=== PATIENT | female | born 1970 | race Caucasian/White ===

== ENCOUNTER → 2018-01-26 07:58 | Outpatient (CLI) | payer BC, SELFPAY ==
--- NOTE | 2018-01-26 08:02 | CT_ITS ---
CT abdomen pelvis wo con CLINICAL INDICATION: ITS.REASON: RT FLANK PAIN ORDERING PHYSICIAN: Mary Laughlin MD PATIENT AGE: 47 years COMPARISON: 11/13/2014 TECHNIQUE: Axial images obtained with sagittal and coronal reformats. All CT scans at the facility use one or more dose reduction, viz: automated exposure control, ma/kV adjustment per patient size (including targeted exams where dose is matched to indication, i.e. head), or iterative reconstruction technique. PROCEDURE: Oral Contrast: None IV Contrast: None . FINDINGS: Lower thorax: No acute finding in the lung bases. Calcified granuloma is present in the left lower lobe. There is a stable isodensity in the left hepatic lobe at 9 mm. Liver is otherwise unremarkable. No calcified gallstones evident. The spleen, adrenal glands, and pancreas have an unremarkable unenhanced CT appearance. No renal or ureteral calculi. No hydronephrosis. Unremarkable appendix. No evidence of intestinal obstruction, free air, or diverticulitis. No pelvic mass or abnormal fluid collection or focal inflammatory change. There may be some nabothian cysts at the cervix. No calculi within the urinary bladder. No acute bony anomaly. IMPRESSION: No acute abdominal or pelvic findings. No evidence of renal or ureteral calculi. Incidental nonacute findings as described above
== END ==
PROVIDERS: PCP Family Medicine; Visit Provider Family Medicine
DX: R10.9 Unspecified abdominal pain (principal)
CPT/HCPCS: 74176

== ENCOUNTER → 2018-10-13 14:04 | Outpatient (CLI) | payer BC, SELFPAY ==
--- NOTE | 2018-10-13 14:12 | XR_ITS ---
EXAM: XR thoracic spine 3V HISTORY: ITS.REASON: BACK PAIN Comparison: None FINDINGS: Normal alignment. No fracture or dislocation. No lytic or blastic change. There are mild degenerative changes in the midthoracic spine with minimal osteophyte formation anteriorly at the T6-T7 level. IMPRESSION: Minimal degenerative change, no acute finding
--- NOTE | 2018-10-13 14:12 | XR_ITS ---
EXAM: XR lumbar spine min 4V HISTORY: ITS.REASON: BACK PAIN ORDERING PHYSICIAN: STEVE Landry PATIENT AGE: 47 years COMPARISON: None FINDINGS: Normal alignment. There is minimal lumbar curvature convex left. There is mild degenerative disc disease at L4-L5 and L5-S1. Small area of sclerosis overlies the medial aspect of the left ilium and may be due to small bone island. IMPRESSION: Mild degenerative disc disease L4-L5 and L5-S1
== END ==
PROVIDERS: PCP Family Medicine; Visit Provider Physician Assistant
DX: M54.5 Low back pain (principal); M54.6 Pain in thoracic spine
CPT/HCPCS: 72072; 72110

== ENCOUNTER → 2018-10-25 13:14 | Outpatient (CLI) | payer BC, SELFPAY ==
--- NOTE | 2018-10-25 13:17 | MR_ITS ---
PROCEDURE: MR LUMBAR SPINE WO CON CLINICAL INDICATION: ACUTE MIDLINE LOW BACK PAIN WITHOUT SCIATICA Acute midline low back pain, right-sided low back pain COMPARISON: from 10/13/2018 from 10/13/2018 TECHNIQUE: Standard multiplanar multiecho sequences are performed without contrast. 3-D MIP and myelographic images are also rendered and reviewed FINDINGS: There is normal alignment. The spinal cord ends at the T12-L1 level. Mild facet hypertrophic change noted. L1-L2: Unremarkable. L2-L3: Minimal disc desiccation otherwise unremarkable. L3-L4: Minimal disc desiccation otherwise unremarkable L4-5: Unremarkable. L5-S1: Unremarkable. No disc herniation, canal stenosis, or other significant anomaly evident. IMPRESSION: No acute finding. No disc herniation or canal stenosis. Minimal disc desiccation with mild facet hypertrophic change Dictated by: Rivas Ruvalcaba MD 10/27/2018 08:06 Signed by: <Electronically signed by Rivas Ruvalcaba MD in [place]> 10/27/2018 08:06
--- NOTE | 2018-10-25 13:17 | MR_ITS ---
PROCEDURE: MR THORACIC SPINE WO CON CLINICAL INDICATION: ACUTE MIDLINE LOW BACK PAIN WITHOUT SCIATICA Acute mid back pain COMPARISON: from 10/13/2018 TECHNIQUE: Routine multiplanar multi echo sequences are performed without gadolinium enhancement. FINDINGS: Normal alignment. No fracture or dislocation. No destructive process.. There is mild degenerate disc disease with disc desiccation and slight decrease in the disc space at T5-T6 T6-T7 and T7-T8. There is small broad-based right paracentral disc protrusion at T6-T7 without impingement. There is mild contour deformity of the anterior aspect of the cord on the right at this level but no obvious impingement by the overlying disc. Minimal bulging disc versus small broad-based left paracentral disc protrusion at T10-T11 without impingement. Lipoma involves the T9 vertebral body at 1 cm. Incidental note is made of trace bilateral pleural effusions. The IMPRESSION: Mild degenerative changes. Small right broad-based paracentral disc protrusion at T6-T7 and small broad-based left paracentral disc protrusion at T10-T11. No impingement upon the cord. There is some minimal contour deformity involving the anterior right aspect of the cord at T6-T7. Small bilateral pleural effusions Dictated by: Rivas Ruvalcaba MD 10/27/2018 08:13 Signed by: <Electronically signed by Rivas Ruvalcaba MD in [place]> 10/27/2018 08:13
== END ==
PROVIDERS: PCP Family Medicine; Visit Provider Physician Assistant
DX: M54.5 Low back pain (principal)
CPT/HCPCS: 72146; 72148; 76376

== ENCOUNTER → 2018-11-03 14:07 | Outpatient (CLI) | payer BC, SELFPAY ==
--- NOTE | 2018-11-03 14:15 | XR_ITS ---
PROCEDURE: XR CHEST 2V CLINICAL HISTORY: PLEURAL EFFUSION Pleural effusion, shortness of air COMPARISON: No exams were available for comparison FINDINGS: The cardiomediastinal silhouette and pulmonary vascularity are within normal limits. The lungs are clear without infiltrates, suspicious nodules, or pleural effusions. Calcified granulomas are present in the left lower lobe and there is calcified node in the left hilum. No acute bony IMPRESSION: Findings. No acute finding Dictated by: Rivas Ruvalcaba MD 11/03/2018 14:46 Signed by: <Electronically signed by Rivas Ruvalcaba MD in [place]> 11/03/2018 14:46
== END ==
PROVIDERS: PCP Family Medicine; Visit Provider Physician Assistant
DX: J90 Pleural effusion, not elsewhere classified (principal)
CPT/HCPCS: 71046

== ENCOUNTER → 2019-03-15 10:46 | Outpatient (CLI) | payer BC, SELFPAY ==
[2019-03-15 11:54] LABS: HCG Qualitative, Serum Negative (Negative)
== END ==
PROVIDERS: Visit Provider Surgery
DX: K82.9 Disease of gallbladder, unspecified (principal)
CPT/HCPCS: 36415; 84703

== ENCOUNTER → 2021-06-23 13:39 | Outpatient (CLI) | payer BC, SELFPAY ==
--- NOTE | 2021-06-23 13:43 | MM_ITS ---
PROCEDURE INFORMATION: Exam: MG Bilateral Screening 3D Mammography Exam date and time: 06/23/2021 1:41 PM Age: 50 years old Clinical indication: Screening examination mammogram. TECHNIQUE: Imaging protocol: Bilateral Screening tomosynthesis and 2D mammography including computer-aided detection (CAD) when performed. COMPARISON: 1. MG DMSB DIG MAMM-SCREEN TERRANCE 06/11/2014 10:43 AM 2. MG DMDXUAVL DIG MAMM-DX UNI ADD VIEWS-LT 01/12/2011 10:15 AM 3. MG DMSB DIGITAL MAMM-SCREEN BILATERAL 12/19/2010 9:23 AM FINDINGS: MAMMOGRAPHY: Breast composition: There are scattered areas of fibroglandular density. Mass: Mass within the slightly lower central left anterior breast measuring 11 mm should be further assessed with spot views in CC/MLO projection. Ultrasound should also be performed. Architectural distortion: No new or suspicious architectural distortion. Calcifications: No new or suspicious calcifications are present Asymmetric density: No new or suspicious asymmetric density is present Skin thickening: None. Axillary adenopathy: None. IMPRESSION: Mass within the slightly lower central left anterior breast measuring 11 mm should be further assessed with spot views in CC/MLO projection. Ultrasound should also be performed. ASSESSMENT: BI-RADS category 0: Incomplete-need additional imaging evaluation
== END ==
PROVIDERS: PCP Physician Assistant; Visit Provider Physician Assistant
DX: Z12.31 Encounter for screening mammogram for malignant neoplasm of breast (principal)
CPT/HCPCS: 77063; 77067

== ENCOUNTER → 2021-07-03 13:28 | Outpatient (CLI) | payer BC, SELFPAY ==
--- NOTE | 2021-07-03 13:34 | US_ITS ---
PROCEDURE INFORMATION: Exam: US Left Breast, Complete MG Left Diagnostic Breast Tomosynthesis Exam date and time: 07/03/2021 1:48 PM Age: 50 years old Clinical indication: Patient recalled on the basis of a screening mammogram for further evaluation; Left breast; Mass TECHNIQUE: Imaging protocol: Complete ultrasound of all four quadrants of the Left breast and the retroareolar regions, including ultrasound of the axilla when performed. Left Diagnostic tomosynthesis and 2D mammography including computer-aided detection (CAD) when performed. Unilateral or bilateral exam. COMPARISON: 1. MG MM DIG SCREENING MAMM BI W/CAD 06/23/2021 1:41 PM 2. MG DMSB DIG MAMM-SCREEN TERRANCE 06/11/2014 10:43 AM FINDINGS: MAMMOGRAPHY: Digital diagnostic spot compression views of the left retroareolar region and 90 degree lateral view of the left breast demonstrates a persistent 1.1 cm ovoid mass without associated architectural distortion ULTRASOUND: Sonographic images of the left breast including the retroareolar region, all 4 quadrants and the axilla do not demonstrate any solid masses. Bilobed 0.9 cm cyst in the 2 o'clock periareolar region most closely corresponds to the mass on mammography. Cursors were placed over normal fibrofatty tissue in lower outer quadrant 4 cm from the nipple. No architectural distortion or acoustical shadowing. No skin thickening or axillary adenopathy. IMPRESSION: Mass on screening mammography corresponds to underlying cystic change sonographically. There is no mammographic evidence of malignancy.Annual bilateral mammographic screening is recommended unless otherwise clinically indicated. ASSESSMENT: BI-RADS Category 2: Benign
== END ==
PROVIDERS: PCP Physician Assistant; Visit Provider Physician Assistant
DX: R92.8 Other abnormal and inconclusive findings on diagnostic imaging of breast (principal)
CPT/HCPCS: 76641; 77061; 77065; G0279

== ENCOUNTER 2023-01-04 13:59 | Emergency (ER) | payer BC, SELFPAY ==
[2023-01-04 14:15] VITALS: BP 137/98; PULSE 90; RESP 18; TEMP 36.9; O2SAT 96; BMI 34.4
--- NOTE | 2023-01-04 14:15 | EXP.UTC ---
Discharge Plan Disposition Patient Disposition: Home, Self-Care Condition: Good Prescriptions Prescriptions: New amoxicillin [amoxicillin] 875 mg tablet 875 mg PO Q12H Qty: 20 0RF benzonatate [benzonatate] 100 mg capsule 100 mg PO TIDP PRN (Reason: Cough) Qty: 30 0RF methylprednisolone 4 mg Tablets,Dose Pack 4 mg PO DIRECTED Qty: 21 0RF Referrals Follow up/Referrals: Deion Nails MD [Primary Care Provider] - See instructions Activity Restrictions/Add. Instructions Additional Instructions/Restrictions: Drink plenty of fluids. Take tylenol or ibuprofen for pain or fever. Take the medications as directed. Follow up with your regular doctor. GO TO THE ER FOR ANY WORSENING SYMPTOMS Clinical Impressions Clinical Impression: Acute bronchitis, Acute viral syndrome Stand Alone Forms Stand Alone Forms: Work/School Release Instructions Patient Instructions: Acute Bronchitis, DI for Acute Bronchitis, DI for Viral Syndrome Discharge ED Provider: Naga Romero [facility] General Stated complaint: low grade fever, cough,congestion,headache Time Seen by Provider: 01/04/23 14:15 History of Present Illness Provider Complaint: She states that for the past 1 week she has had sinus congestion and a cough. Related Data Previous Rx's Medication Instructions Recorded amoxicillin 875 mg tablet 875 mg PO Q12H #20 tabs 01/04/23 benzonatate 100 mg capsule 100 mg PO TIDP PRN Cough #30 caps 01/04/23 methylprednisolone 4 mg tablets in 4 mg PO DIRECTED #21 tabs 01/04/23 a dose pack Allergies Allergy/AdvReac Type Severity Reaction Status Date / Time adhesive tape Allergy Blister Verified 01/04/23 14:40 alcohol Allergy Blister Verified 01/04/23 14:40 [From Mastisol Adhesive] gum mastic Allergy Blister Verified 01/04/23 14:40 [From Mastisol Adhesive] methyl salicylate Allergy Blister Verified 01/04/23 14:40 [From Mastisol Adhesive] storax Allergy Blister Verified 01/04/23 14:40 [From Mastisol Adhesive] [facility] Disclaimer: The information contained in this section may have been updated after the patient was seen, as this information can be updated by other users. Social History Smoking Status: Never smoker alcohol intake: never substance use type: other current occupational status: employed Travel in the last 8 weeks: None household members: spouse and family housing: house current occupational exposures/hazards: No caffeine: Yes ROS Obtained: Yes All systems reviewed & no additional complaints except as documented Constitutional Constitutional: Reports poor appetite Eyes Eyes: Reports system reviewed and no additional complaints, except as documented ENT Ears, Nose, Mouth, and Throat: Reports as per HPI Cardiovascular Cardiovascular: Reports system reviewed and no additional complaints, except as documented and Denies chest pain Respiratory Respiratory: Denies shortness of breath, Reports chest congestion, Reports cough, Denies stridor and Denies wheezing Gastrointestinal Gastrointestingal: Reports system reviewed and no additional complaints, except as documented; Denies abdominal pain, diarrhea or vomiting Musculoskeletal Musculoskeletal: Reports system reviewed and no additional complaints, except as documented and Denies arthralgias Integumentary/Breasts Skin/Breast: Reports system reviewed and no additional complaints, except as documented and Denies rash Neurologic Neurologic: Denies paresthesias Allergic/Immunologic Allergic/Immunologic: Denies wheezing Physical Exam General General appearance: alert and in no apparent distress Eye Eye exam: Present normal appearance, PERRL and EOMI ENT ENT exam: Present mucous membranes moist and normal external ear exam Expanded ENT Exam External ear exam: Present normal external inspection TM/Canal exam: Bilateral TM: erythema a
[2023-01-04 15:09] VITALS: BP 137/98; PULSE 96; RESP 18; TEMP 36.9; O2SAT 96
== END 2023-01-04 15:09 | disposition home or self-care (01) ==
PROVIDERS: Emergency Provider Nurse Practitioner Family; PCP Family Medicine
DX: J20.9 Acute bronchitis, unspecified (principal); B34.9 Viral infection, unspecified
CPT/HCPCS: 87635; 99204; 99212; G0463

== ENCOUNTER 2023-04-14 09:17 | Emergency (ER) | payer BC, SELFPAY ==
[2023-04-14 09:17] VITALS: BP 107/72; PULSE 85; RESP 18; TEMP 37; O2SAT 98; BMI 34.9
[2023-04-14 09:30] VITALS: BP 115/78; PULSE 82; RESP 20; O2SAT 98
--- NOTE | 2023-04-14 09:37 | ECG_ITS ---
APPROVED REPORT Exam: Resting ECG HR:79 bpm ECG Measurements Heart Rate 79 AXES WV 172 P 65 QRSd 78 QRS 83 QT 337 T 32 QTc 372 Conclusion SINUS RHYTHM SEPTAL MYOCARDIAL INFARCTION , OF INDETERMINATE AGE [40+ ms Q WAVE IN V1/V2] ABNORMAL ECG UNCONFIRMED REPORT Electronically signed by : Dao Chang MD 04/14/2023 21:45:29
--- NOTE | 2023-04-14 09:39 | HMH.EDGENADL ---
Discharge Plan Disposition Patient Disposition: Home, Self-Care Prescriptions Prescriptions: New oseltamivir [Tamiflu] 75 mg capsule 75 mg PO BID 5 Days Qty: 10 0RF ondansetron 4 mg tablet,disintegrating 4 mg PO Q6H PRN (Reason: nausea and vomiting) Qty: 10 0RF No Action amoxicillin [amoxicillin] 875 mg tablet 875 mg PO Q12H Qty: 20 0RF benzonatate [benzonatate] 100 mg capsule 100 mg PO TIDP PRN (Reason: Cough) Qty: 30 0RF methylprednisolone 4 mg Tablets,Dose Pack 4 mg PO DIRECTED Qty: 21 0RF Referrals Follow up/Referrals: Deion Nails MD [Primary Care Provider] - See instructions Activity Restrictions/Add. Instructions Additional Instructions/Restrictions: Call your family doctor to establish care for this visit to the emergency department and schedule follow-up within 48 hours to ensure improvement. If you have any worsening of your condition or any other concerning signs or symptoms, return to the emergency department or your primary care doctor for further evaluation. Take Tylenol 1000 mg every 6 hours (4 times daily) and ibuprofen 400 mg every 6 hours (4 times daily) as needed with food and water to prevent GI upset and kidney damage. Tamiflu as prescribed, Zofran 6 hours as needed. Take 10 to 15 minutes before meals to stimulate appetite Clinical Impressions Clinical Impression: Influenza A, Syncope, vasovagal Instructions Patient Instructions: DI for Syncope in Adults (Fainting), DI for Syncope in Children (Fainting) Discharge ED Provider: Alek Santos General Adult HPI General Chief complaint: Syncope Stated complaint: fever, dizzy fall at home Time Seen by Provider: 04/14/23 09:23 Mode of Arrival: Ambulatory Source of Information: Patient Limitations: No Limitations Description of Symptoms (Recalled from ER Triage Doc. by RN): pt presents to ED with c/o syncopal episode. pt reports she was walking to the bathroom and had a fall in the hallway. pt report head pain and tailbone pain. pt reports she does not remember fall. History of Present Illness HPI narrative: 52-year-old female history of lupus presenting with fall. Patient states that she has had fevers and chills, body aches the past 2 days starting Wednesday afternoon. She has had decreased p.o. intake since that time. Today, she states that she sat on the toilet in order to have a bowel movement. [place] lightheaded with straining, and then tried to lower self to the ground, but woke up on the floor next to the toilet. Does not know how long she was there, but does not think was more than a couple of minutes. No tongue biting, patient did urinate. She struck the back of her head and has a small amount of pain there, but no laceration or hematoma. No neck pain, back pain, patient does have mild coccyx pain from where she hit the floor. Not currently having headache, vision changes, unilateral deficits, speech deficits, or any other concerns. Related Data Previous Rx's Medication Instructions Recorded amoxicillin 875 mg tablet 875 mg PO Q12H #20 tabs 01/04/23 benzonatate 100 mg capsule 100 mg PO TIDP PRN Cough #30 caps 01/04/23 methylprednisolone 4 mg tablets in 4 mg PO DIRECTED #21 tabs 01/04/23 a dose pack ondansetron 4 mg disintegrating 4 mg PO Q6H PRN nausea and 04/14/23 tablet vomiting #10 tabs oseltamivir 75 mg capsule (Tamiflu) 75 mg PO BID 5 days #10 caps 04/14/23 Allergies Allergy/AdvReac Type Severity Reaction Status Date / Time adhesive tape Allergy Blister Verified 01/04/23 14:40 alcohol Allergy Blister Verified 01/04/23 14:40 [From Mastisol Adhesive] gum mastic Allergy Blister Verified 01/04/23 14:40 [From Mastisol Adhesive] methyl salicylate Allergy Blister Verified 01/04/23 14:40 [From Mastisol Adhesive] storax Allergy Blister Verified 01/04/23 14:40 [From Mastisol Adhesive] [facility] Disclaimer: The information contained in this section may have been updated after the patient was seen, as this information can be updated by other users. Social History Smoking Status: Never smoker alcohol intake: never substance use type: other current occupational status: employed Travel in the last 8 weeks: None household members: spouse and family housing: house current occupational exposures/hazards: No caffeine: Yes ROS Obtained: Yes All systems reviewed & no additional complaints except as documented Physical Exam General General appearance: alert and in no apparent distress Head Head exam: atraumatic and normocephalic Eye Eye exam: Present normal appearance, PERRL and EOMI ENT ENT exam: Present mucous membranes moist Neck Neck exam: Present normal inspection, full ROM and trachea midline Respiratory Respiratory exam: Absent respiratory distress, wheezes, stridor, accessory muscle use or prolonged expiratory phase Cardiovascular Cardiovascular exam: Present normal rhythm Abdominal Exam Abdominal exam: Present soft; Absent distention, tenderness, guarding, rebound or rigidity Extremities Exam Extremities exam: Absent edema Neurological Exam Neurological exam: Present alert, oriented X3, CN II-XII intact and normal gait; Absent motor sensory deficit Skin Skin exam: Present warm and dry; Absent diaphoresis or erythema Medical Decision Making Medical Records Medical records reviewed: Yes I reviewed the patient's medical records. Larry Inquiry Pt receiving controlled substance: No Larry was queried for this patient: No Vital Signs: 04/14/23 09:17 04/14/23 09:30 04/14/23 10:00 Temperature 98.6 F Temperature Source Oral Pulse Rate 82 78 Pulse Rate [Left Radial] 85 Respiratory Rate 18 20 20 Blood Pressure 115/78 114/64 Blood Pressure [Right Arm] 107/72 L Blood Pressure Mean 87 86 Blood Pressure Mean [Right Arm] 83 02 Sat by Pulse Oximetry 98 98 98 Oxygen Delivery Method Room Air Lab Data Lab Results 04/14/23 09:49: WBC 5.6, RBC 5.13, Hgb 14.8, Hct 45.3, MCV 88.2, MCH 28.9, MCHC 32.7, RDW 14.2, Plt Count 182, MPV 8.4, Neut % (Auto) 81.5 H, Lymph % (Auto) 9.2 L, [place] % (Auto) 7.4, Eos % (Auto) 0.9, Baso % (Auto) 1.1, Neut # (Auto) 4.6, Lymph # (Auto) 0.5 L, [place] # (Auto) 0.4, Eos # (Auto) 0.1, Baso # (Auto) 0.1, Sodium 137, Potassium 3.8, Chloride 105, Carbon Dioxide 29, Anion Gap 6.8, BUN 9, Creatinine 0.90, Estimated Creat Clear 112, Estimated GFR 66, Est GFR ( Amer) 80, Glucose 136 H, Calcium 8.7, Total Bilirubin 0.4, AST 49 H, ALT 46, Alkaline Phosphatase 91, Total Protein 7.4, Albumin 3.9, Globulin 3.5 H, Albumin/Globulin Ratio 1.1, SARS-CoV-2 (PCR) Not detected, Influenza A Untype (PCR) Detected A, Influenza Type B (PCR) Not detected 04/14/23 09:49 04/14/23 09:49 Orders (Tests/Meds): ED MEDICATIONS Discontinued Medications Generic Name Dose Route Start Last Admin Trade Name Benji PRN Reason Stop Dose Admin Lactated Ringer's 1,000 mls @ 999 mls/hr 04/14/23 09:30 02 09:48 Lactated Ringer's 1000 Ml Bag IV 04/14/23 10:30 999 mls/hr .Q1H1M ONE Administration ORDERS Category Date Time Status CBC w/Auto Diff [Complete Blood Count Auto Diff] Stat Lab 04/14/23 09:49 Completed CMP [Comprehensive Metabolic Panel] Stat Lab 04/14/23 09:49 Completed Rapid PCR Covid and Flu A/B Stat Lab 04/14/23 09:49 Completed ECG initial [place] Routine Y 04/14/23 09:37 Completed Medical Decision Narrative: 52-year-old female history of lupus presenting with fall. Patient states that she has had fevers and chills, body aches the past 2 days starting Wednesday afternoon. She has had decreased p.o. intake since that time. Today, she states that she sat on the toilet in order to have a bowel movement. [place] lightheaded with straining, and then tried to lower self to the ground, but woke up on the floor next to the toilet. Does not know how long she was there, but does not think was more than a couple of minutes. No tongue biting, patient did urinate. She struck the back of her head and has a small amount of pain there, but no laceration or hematoma. No neck pain, back pain, patient does have mild coccyx pain from where she hit the floor. Not currently having headache, vision changes, unilateral deficits, speech deficits, or any other concerns. history was obtained via conversation with patient. On arrival, patient hemodynamically stable, alert, oriented x4, appropriate, GCS 15, moving all extremities spontaneously, pupils equal and reactive to light. Full physical exam performed and significant for well-appearing woman in no acute distress. Neurologically intact. Cardiopulmonary exam within normal limits. No evidence of trauma to the back of her head. No neck or back pain. Patient is mildly hypotensive and tachycardic concerning for dehydration. Differential includes dehydration, vasovagal syncope, arrhythmia, ACS, DC, intracranial bleed, among others. Patient was given fluid bolus for symptomatic management and correction of underlying abnormalities. Workup independently interpreted and significant for flu positive swab, nonactionable CBC or chemistry. See radiology read for full review of final results. Independent interpretation of EKG shows sinus rhythm 79 beats a minute without ST or T wave changes concerning for acute ischemia. MO, QRS, QT intervals within normal limits. [place] normal. Low risk [place] syncope. On reevaluation, patient feeling much better after fluids. Given patient presentation, workup, history, this most likely represents orthostatic versus vasovagal syncope in the setting of viral syndrome and dehydration. Less likely intracranial bleed, given absence of headache and neurologic deficits at this time. Also less likely to be ACS given absence of chest pain, shortness of breath, weakness and absence of symptoms at this point. Because patient at baseline without signs or symptoms of clinical decompensation, deemed appropriate for discharge. Results were relayed to patient who voiced understanding and were agreeable to outpatient management and follow up. At the time of discharge the patient was hemodynamically stable, tolerating PO, and mobilizing appropriately. Critical Care Critical Care Time Critical Care Time: No
[2023-04-14] MEDS: LACTATED RINGERS 1000ML 1,000 ML 999 ML IV (09:48)
[2023-04-14 09:56] LABS: Coronavirus 19, PCR Not Detected (NotDetected); Influenza B, PCR Not Detected (NotDetected)
[2023-04-14 09:59] LABS: Basophils # 0.1 K/mm3 (0-0.2); Basophils % 1.1 % (0.1-2.0); Eosinophils # 0.1 K/mm3 (0.0-0.4); Eosinophils % 0.9 % (0.1-12.0); Hematocrit 45.3 % (37.0-47.0); Hemoglobin 14.8 g/dL (12.2-16.2); Lymphocytes # 0.5 K/mm3 (0.7-4.5); Lymphocytes % 9.2 % (10-50); Mean Corpuscular HGB Conc 32.7 g/dL (31.8-35.4); Mean Corpuscular Hemoglobin 28.9 pg (27.0-31.2); Mean Corpuscular Volume 88.2 fl (81-99); Mean Platelet Volume 8.4 fl (7.4-10.4); Monocytes # 0.4 K/mm3 (0.1-1.0); Monocytes % 7.4 % (1.7-9.3); Neutrophils # 4.6 K/mm3 (1.8-7.8); Neutrophils % 81.5 % (37.0-80.0); Platelet Count 182 K/mm3 (142-424); Red Blood Count 5.13 M/mm3 (4.20-5.40); Red Cell Distribution Width 14.2 % (11.5-17.5); White Blood Count 5.6 K/mm3 (4.8-10.8)
[2023-04-14 10:00] VITALS: BP 114/64; PULSE 78; RESP 20; O2SAT 98
[2023-04-14 10:02] LABS: Chloride 105 mmol/L (98-107); Sodium 137 mmol/L (136-145)
[2023-04-14 10:03] LABS: Potassium 3.8 mmoL/L (3.5-5.1)
[2023-04-14 10:05] LABS: Alanine Aminotransferase 46 U/L (12-78); Albumin Level 3.9 g/dl (3.5-5.0); Albumin/Globulin Ratio 1.1 (1.1-1.8); Alkaline Phosphatase 91 U/L (38-126); Anion Gap 6.8 mEq/L (5-15); Aspartate Amino Transferase 49 U/L (14-36); Bilirubin,Total 0.4 mg/dl (0.2-1.3); Blood Urea Nitrogen 9 mg/dl (7-17); Carbon Dioxide 29 mmol/L (22.0-30.0); Creatinine Clearance Estimated 112 mL/min (50-200); Estimated Glomerular Filt Rate 66 ml/min (>60); GFR (African American) 80 ML/MIN (>60); Globulin 3.5 g/dL (1.3-3.2); Total Protein,Serum 7.4 g/dl (6.3-8.2)
[2023-04-14 10:06] LABS: Calcium 8.7 mg/dl (8.4-10.2); Glucose 136 mg/dl (74-100)
[2023-04-14 10:24] LABS: Influenza A, PCR Detected (NotDetected)
[2023-04-14 11:06] VITALS: BP 110/70; PULSE 70; RESP 15; TEMP 36.7
== END 2023-04-14 11:07 | disposition home or self-care (01) ==
PROVIDERS: Emergency Provider Emergency Medicine; PCP Family Medicine
DX: J10.1 Influenza due to other identified influenza virus with other respiratory manifestations (principal); R55 Syncope and collapse; R51.9 Headache, unspecified; M53.3 Sacrococcygeal disorders, not elsewhere classified; W19.XXXA Unspecified fall, initial encounter
CPT/HCPCS: 80053; 85025; 87636; 93005; 96360; 99285

== ENCOUNTER 2023-04-28 07:57 | Outpatient (CLI) | payer BC, SELFPAY ==
--- NOTE | 2023-04-28 08:05 | FL_ITS ---
FINAL REPORT CLINICAL HISTORY: ESOPHAGEAL DYSPHAGIA 1244.26 dap 2.08 fluoro time FINDINGS: UPPER GI EXAM HISTORY: Epigastric pain dysphagia. PROCEDURE: The patient ingested barium. Effervescent crystals were also administered. 23 radiographs were obtained. FINDINGS: The esophagus is normal. There is a small sliding-type hiatal hernia. There is no gastroesophageal reflux. Peristalsis is normal. A 13 mm barium tablet passes through the esophagus and into the stomach without delay. The rugal fold pattern of the stomach is normal. The duodenal bulb is normal. Fluoro time: 2 minutes 8 seconds Fluoro dose: 1244.26 DAP in uGym2. IMPRESSION: Normal upper GI. Films reviewed , interpreted and dictated by Dr. Patterson. Transcribed by Romulo Sterling PA-C. Reviewed, Interpreted and Dictated by Leroy Patterson MD Transcribed by STEVE Brandt Authenticated and [facility]
[2023-04-28] MEDS: BARIUM SULFATE(E-Z-AC);750ML BOTTLE 750 ML PO (08:55)
[2023-04-28] MEDS: E-Z-GASII EFFERVESCENT GRANULES;1PK 1 EACH PO (08:56)
[2023-04-28] MEDS: BARIUM SULFATE (E-Z-HD 340GM);135ML BOTTLE 135 ML PO (08:56)
== END 2023-04-28 23:59 ==
LOC: RAD 07:58
PROVIDERS: PCP Family Medicine; Visit Provider Family Medicine
DX: R13.19 Other dysphagia (principal)
CPT/HCPCS: 74246

== ENCOUNTER 2023-09-01 08:42 | Day surgery (SDC) | payer BC, SELFPAY ==
[2023-08-31 10:49] VITALS: BMI 34.2
[2023-09-01 08:59] VITALS: BP 117/78; PULSE 80; RESP 18; TEMP 36.2; O2SAT 99
--- NOTE | 2023-09-01 09:05 | P.PNANES_ITS ---
[facility] Disclaimer: The information contained in this section may have been updated after the patient was seen, as this information can be updated by other users. Medical History Rheumatoid arthritis Lupus Surgical History History of cholecystectomy Family History Other Family history of diabetes mellitus type II Family history of hypertension Social History Smoking Status: Never smoker alcohol intake: never substance use type: other current occupational status: employed Travel in the last 8 weeks: None household members: spouse and family housing: house current occupational exposures/hazards: No caffeine: Yes [facility] Anesthesia Checklist Patient Identification Patient Identification: Arm Band and Verbal (Name & ) Structural Data Admitted From: Home Planned Operative Procedure/s: EGD Consent for Planned Operative Procedure(s) Verified: Yes Verified Documents: Surgical Consent NPO Status Verified Time NPO: 00:00 Additional verifications Anesthesia Reactions: No Hx Blood Transfusions: No Blood Transfusion Reaction: No Airway Assessment Mallampati Score:: Class II C-Spine Mobility Assessed: Yes TMJ Mobility Assessed: Yes Dentition: Good Dentition Neurological Assessment Level of Consciousness: Awake Hx Seizures: No Numbness or tingling in extremities: No Anesthesia Plan Anesthesia Risk discussed: Yes Anesthesia Plan: Verified ASA Class: II Anesthesia Type: MAC
[2023-09-01] MEDS: LACTATED RINGERS 1000ML 1,000 ML 25 ML IV (09:10)
[2023-09-01 09:27] VITALS: O2SAT 99
--- NOTE | 2023-09-01 09:46 | HMH.SCOPE ---
Procedure: Date: 09/01/23 Patient Date of :: 1970 Procedure Performed:: EGD Indications:: The patient is a 52-year-old who presents for EGD evaluation of dysphagia symptom Performing Provider:: Slim Boone MD Referring Provider:: Navdeep Nails MD Sedation:: See RN records Procedure:: The gastroscope was gently passed through the incisoral orifice into the oral cavity and under direct visualization the esophagus was intubated. The endoscope was passed down the esophagus, through the stomach, and into the duodenum. Color, texture, mucosa, and anatomy of the esophagus, stomach, and duodenum were carefully examined with the scope. Findings:: The esophagus had a corrugated appearance of the mid to distal esophagus. There was a nonobstructive Schatzki's ring in the distal esophagus. Biopsies were obtained with a cold forceps from the distal and mid esophagus. The Z-line was measured at 35 cm. Esophageal dilatation was performed sequentially with a 18 to 20 mm TTS balloon. There was a hiatal hernia approximately 2 cm in size. There was inflammation in the antrum and body of the stomach characterized by erythema and congestion. Biopsies were obtained with a cold forceps for histology. The examined duodenum appeared normal. Impression: Corrugated appearance of the esophagus Mild Schatzki ring Hiatal hernia Gastritis Recommendations:: Await pathology results Return for EGD with esophageal dilatation as needed. Complications:: None Estimated blood obtained (mL): 0 Colonoscopy Component Colonoscopy Component Was a colonoscopy performed during today's procedure?: No
[2023-09-01 09:50] VITALS: BP 129/77; PULSE 85; RESP 16; TEMP 36.2; O2SAT 93
[2023-09-01 10:00] VITALS: BP 120/78; PULSE 75; RESP 16; O2SAT 95
[2023-09-01 10:10] VITALS: BP 125/86; PULSE 75; RESP 16; O2SAT 95
[2023-09-01 10:20] VITALS: BP 131/83; PULSE 68; RESP 18; O2SAT 97
== END 2023-09-01 10:55 | disposition home or self-care (01) ==
PROVIDERS: PCP Family Medicine; Visit Provider Internal Medicine
PROC: 0DJ08ZZ Inspection of Upper Intestinal Tract, Via Natural or Artificial Opening Endoscopic (ICD-10-PCS; CPT 43235; principal; 2023-09-01 09:30)
DX: R13.10 Dysphagia, unspecified (principal); K29.70 Gastritis, unspecified, without bleeding; K44.9 Diaphragmatic hernia without obstruction or gangrene; K22.2 Esophageal obstruction
CPT/HCPCS: 43239; 43249; C1726; J7120

== ENCOUNTER 2023-10-15 18:05 | Emergency (ER) | payer BC, SELFPAY ==
--- NOTE | 2023-10-15 18:29 | ED_ITS ---
Discharge Plan Disposition Patient Disposition: Home, Self-Care Condition: Good Prescriptions Prescriptions: New acyclovir 800 mg tablet 800 mg PO 5XDAY 7 Days Qty: 35 0RF prednisone 10 mg tablet 10 mg PO DIRECTED 9 Days Qty: 21 0RF Rx Instructions: Take 4 tablets daily for 3 days, then take 2 tablets daily for 3 days, then take 1 tablet daily for 3 days, then stop. No Action ondansetron 4 mg tablet,disintegrating 4 mg PO Q6H PRN (Reason: nausea and vomiting) Qty: 10 0RF colestipol 1 gram Tablet 5 g PO DAILY Referrals Follow up/Referrals: Deion Nails MD [Primary Care Provider] - See instructions Activity Restrictions/Add. Instructions Additional Instructions/Restrictions: Drink plenty of fluids with the medications. Take tylenol or ibuprofen for pain or fever. Take the medications as directed. Follow up with your regular doctor. Make sure you follow up with your primary care physician on Wednesday or as soon as they can see you. This needs to be follow closely to make sure it is getting better. 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), Shingles Instructions Patient Instructions: DI for Shingles, Prednisone, Acyclovir, DI for Ralph Pardo Syndrome, Ralph Pardo Syndrome Print Language Print Language: French Discharge ED Provider: Naga Romero [facility] General Stated complaint: Earache and pain down neck Time Seen by Provider: 10/15/23 18:29 Related Data Home Medications ?Medication ?Instructions ?Recorded ?Confirmed colestipol 1 gram tablet 5 g PO DAILY 09/01/23 09/01/23 Previous Rx's ?Medication ?Instructions ?Recorded ondansetron 4 mg disintegrating 4 mg PO Q6H PRN nausea and 04/14/23 tablet vomiting #10 tabs acyclovir 800 mg tablet 800 mg PO 5XDAY 7 days #35 tabs 10/15/23 prednisone 10 mg tablet 10 mg PO DIRECTED 9 days #21 10/15/23 tabs Allergies Allergy/AdvReac Type Severity Reaction Status Date / Time adhesive tape Allergy Blister Verified 09/01/23 08:56 alcohol Allergy Blister Verified 09/01/23 08:56 [From Mastisol Adhesive] gum mastic Allergy Blister Verified 09/01/23 08:56 [From Mastisol Adhesive] methyl salicylate Allergy Blister Verified 09/01/23 08:56 [From Mastisol Adhesive] storax Allergy Blister Verified 09/01/23 08:56 [From Mastisol Adhesive] [facility] Disclaimer: The information contained in this section may have been updated after the patient was seen, as this information can be updated by other users. Medical History (Updated 10/15/23 @ 19:26 by Naga Romero APRN) Dumping syndrome Rheumatoid arthritis Lupus Surgical History History of cholecystectomy Family History Other Family history of diabetes mellitus type II Family history of hypertension Social History Smoking Status: Never smoker alcohol intake: never substance use type: other current occupational status: employed Travel in the last 8 weeks: None household members: spouse and family housing: house current occupational exposures/hazards: No caffeine: Yes ROS Obtained: Yes All systems reviewed & no additional complaints except as documented Constitutional Constitutional: Denies chills and Denies fever(s) Eyes Eyes: Denies eye discharge ENT Ears, Nose, Mouth, and Throat: Denies dizziness, Denies otalgia and Denies sore throat Cardiovascular Cardiovascular: Denies chest pain Respiratory Respiratory: Denies shortness of breath, Denies chest congestion, Denies cough, Denies stridor and Denies wheezing Gastrointestinal Gastrointestingal: Denies nausea or vomiting Musculoskeletal Musculoskeletal: Reports system reviewed and no additional complaints, except as documented and Denies arthralgias Integumentary/Breasts Skin/Breast: Denies rash Neurologic Neurologic: Denies dizziness and Denies paresthesias Allergic/Immunologic Allergic/Immunologic: Denies wheezing Physical Exam General General appearance: alert and in no apparent distress Head Head exam: atraumatic, normocephalic and normal inspection Eye Eye exam: Present normal appearance, PERRL and EOMI ENT ENT exam: Present normal exam, normal oropharynx, mucous membranes moist, TM's normal bilaterally and normal external ear exam Neck Neck exam: Present normal inspection, full ROM and trachea midline; Absent meningismus or lymphadenopathy Chest Chest inspection: Present normal inspection and symmetric chest wall rise; Absent tenderness Respiratory Respiratory exam: Present normal lung sounds bilaterally; Absent respiratory distress Cardiovascular Cardiovascular exam: Present regular rate and normal rhythm; Absent JVD Abdominal Exam Abdominal exam: Present soft and normal bowel sounds; Absent distention, tenderness or guarding Extremities Exam Extremities exam: Present normal inspection, full ROM and normal capillary refill; Absent calf tenderness Back Exam Back exam: Present normal inspection; Absent tenderness Neurological Exam Neurological exam: Present alert and oriented X3 Psychiatric Psychiatric exam: Present normal affect and normal mood Skin Skin exam: Present warm, dry, intact and normal color Lymphatic Lymphatic Findings: no adenopathy Medical Decision Making Medical Records Medical records reviewed: No I reviewed the patient's medical records. Larry Inquiry Pt receiving controlled substance: No
[2023-10-15 18:30] VITALS: BP 156/79; PULSE 102; RESP 16; TEMP 36.7; O2SAT 98; BMI 34.2
[2023-10-15 19:29] VITALS: BP 156/79; PULSE 102; RESP 16; TEMP 36.7; O2SAT 98
== END 2023-10-15 19:34 | disposition home or self-care (01) ==
PROVIDERS: Emergency Provider Nurse Practitioner Family; PCP Family Medicine
DX: B02.9 Zoster without complications (principal); B02.21 Postherpetic geniculate ganglionitis
CPT/HCPCS: 99212; 99214; G0463

== ENCOUNTER 2024-07-03 11:00 | Outpatient (RCR) | payer BC, SELFPAY ==
--- NOTE | 2024-06-19 14:26 | HMH.PTOPEV ---
PT Outpatient Evaluation Rehab PT Outpatient Evaluation Start: 06/19/24 13:15 Freq: Status: Active Protocol: Document 06/19/24 13:17 MARLENY (Rec: 06/19/24 14:26 MARLENY [id number]) E-signed By Joellen Gaspar, PT Outpatient Therapy Subjective History Subjective History Pt is a 53 y/o female who reports acute on chronic right sided low back pain. Pt reports she woke up ~1 week ago with insidious onset of pain, denies known trauma or injury. Pt denies having recent imaging of the low back or SIJ but does report history of DDD. Pt reports she just finished a steroid pack yesterday which helped decrease severity of symptoms but did not abolish pain. Pt reports pain is aggravated by getting up after prolonged sitting, bending/lifting, rolling over in bed and laying on her left side. Pt reports she feels like her back shifts and pops on the right side with painful movements. Pt denies numbness/tingling, more distal LE symptoms, or b/ b dysfunction. Medical History: Dumping syndrome, Rheumatoid arthritis , Lupus Core strength: 4-/5 New diagnosis of cancer in past 12 No months? Chief Complaint Pain Symptom Type Ache,Sharp,Dull Symptoms Relieved By Rest/Positioning,Prescription Meds Symptoms Aggravated By Standing,Bending/Stooping, Physical Activity,Twisting, Lifting Symptom Description Constant but Variable Level of pain today (0-10) 2 Pain scale - at its best (0-10) 2 Pain scale - at its worst (0-10) 7 Lumbopelvic Eval Palapation tenderness bilateral lumbar spinal tenderness Yes: L3>L4>L5 paraspinal tenderness Yes: Right lumbar PS buttock tenderness Yes: R glute med/min, piriformis Lumbar/Sacral Palpation Findings Tenderness,Muscle Guarding Lumbar/Sacral Palpation Overall Comment 2-3/4 TTP Accessory Movement L-spine Vertebrae Accessory Movements Central P/A [place],Right P/A that Elicit Symptoms [place] L2 bilateral L3 bilateral L4 bilateral Range of Motion Lumbar Spine Active Flexion Range of 80 Motion (degrees) Lumbar Spine Active Extension Range of 15 Motion (degrees) Left Lumbar Spine Lateral Flexion Active 15 Range of Motion (degrees) Right Lumbar Spine Lateral Flexion 15 Active Range of Motion (degrees) Manual Muscle Test Right Knee Extension Strength Grade 5 Normal Knee Flexion Strength Grade 5 Normal Hip Abduction Strength Grade 4 Good Hip Adduction Strength Grade 4 Good Hip Extension Strength Grade 4- Good- Ankle Dorsiflexion Strength Grade 5 Normal DTR Rt Patellar 2+ Lt Patellar 2+ Rt Gastroc/Soleus 2+ Lt Gastroc/Soleus 2+ Altered Sensation Bilateral Comment equal and intact to light touch sensation bilaterally Special Tests Hip Scouring (Quadrant) Test Negative Right Hip Lauro ([place]) Test Positive Right Sciatic Nerve Tension Test Negative Right Unilateral Straight Leg Raise ([place]ase[place]) Negative Right Test True Leg Length Discrepency Test negative (89cm R vs 88.5cm L) Sacroiliac Joint Compression Test Negative Left,Negative Right Sacroiliac Joint Distraction Test Negative Left,Negative Right Oswestry Index Section 1 Pain Intensity The pain comes and goes and is moderate Section 2 Personal Care (Washing,Dresing) change my way of washing or dressing in order to avoid pain Section 3 Lifting lifting heavy weights off the floor, but I can manage if they are Section 4 Walking I have some pain when walking but it does not increase with distance Section 5 Sitting I can sit in any chair for as long as I like Section 6 Standing I have some pain on standing, but it does not increase with time Section 7 Sleeping Because of my pain, my normal night's sleep is less than 6 hours sleep Section 8 Social Life My social life is normal and gives me no extra pain Section 9 Traveling I get some pain when traveling , but none of my usual forms of travel m Section 10 Changing Degreee of Pain My pain fluctuates, but overall is definitely getting better Score and Risk Level Oswestry Sc 11 Oswestry Risk Level Mild Disability Outpatient Therapy Assessment Impairments Problems/Impairmments Palpation Tenderness,Impaired Range of Motion,Impaired Strength,Impaired Transfers, Impaired Lifting,Impaired Household Care,Impaired Squatting,Impaired Bending, Subjective C/O Pain,Impaired Self Care/Self Management Prognosis Rehab Potential Good Clinical Impression Consistent with Diagnosis Yes Additional details: low back pain with referred pain Short Term Goals Number of Weeks 3 Improve Transfers Yes: perform bed mobility with pain <5/10 Decrease Subjective C/O Pain Yes: Improve pain at worst to 5/10 to improve overall QOL Improve Self Care/Self Management Yes Patient to be Ind w/ HEP Yes [employer] Goals Number of Weeks 6 Decreased Palpation Tenderness Yes: 0-1/4 TTP of R lumbar PS and gluteal mm Increase Range of Motion Yes: Improve lumbar AROM flex to 85-90 Increase Strength Yes: Improve core/hip strength to 4-4+/5 grossly Restore Ability to Lift Objects to Waist Yes: demonstrate proper Level lifting mechanics to prevent reinjury Improve Oswestry Score Yes: Improve score to 6 or less to improve overall QOL Decrease Subjective C/O Pain Yes: Improve pain at worst to 3/10 to improve overall QOL Outpatient Therapy Plan of Care Treatment Plan May Include Therapeutic Exercise Including Home Yes Exercise Program Manual Therapy Techniques Yes Neuromuscular Re-education Yes Therapeutic Activities to Return to Yes Previous Functional/Work Level Gait Training Yes ADL/Self Care Education Yes Mechanical Traction Yes Dry Needling Yes Thermal Modalities Yes Electrical Stimulation Yes Ultrasound/Phonophoresis Yes Iontophoresis Yes Massage Yes Eval/Re-Eval Yes Frequency Times per week 2 Duration Number of Weeks 4-6 Addendums This patient is a candidate for social No or vocational rehab? Patient/Guardian verbally acknowledges Yes understanding of treatment program and consents to further treatment? Patient/Guardian verbally acknowledges Yes understanding of diagnosis, prognosis and goals for treatment? Eval Complexity PT Charges 98118 - Low Complexity Shoulder/Elbow Eval Shoulder Objective Measurements Elbow Objective Measurements PHYSICIAN CERTIFICATION: I certify the specified therapy services for Libertad Villarreal are required, authorized, and reviewed every 30 days.
== END 2024-07-03 23:59 | disposition home or self-care (01) ==
LOC: PT 11:00
PROVIDERS: PCP Family Medicine; Visit Provider Physician Assistant
DX: M53.3 Sacrococcygeal disorders, not elsewhere classified (principal)
CPT/HCPCS: 97014; 97035; 97110; 97163; G0283

== ENCOUNTER 2024-07-11 14:12 | Outpatient (CLI) | payer BC, SELFPAY ==
--- NOTE | 2024-07-11 14:15 | MM_ITS ---
PROCEDURE INFORMATION: Exam: MG Bilateral Screening 3D Mammography Exam date and time: 07/11/2024 2:13 PM Age: 53 years old Clinical indication: Screening examination. TECHNIQUE: Imaging protocol: Bilateral Screening tomosynthesis and 2D mammography including computer-aided detection (CAD) when performed. COMPARISON: 1. MG MM DIG MAMM DX UNILAT LT CAD 07/03/2021 1:48 PM 2. MG MM DIG SCREENING MAMM BI W/CAD 06/23/2021 1:41 PM FINDINGS: MAMMOGRAPHY: Breast composition: The breasts are almost entirely fatty. Mass: None. Architectural distortion: None. Calcifications: No suspicious calcifications. Asymmetric density: None. Skin thickening: None. Axillary adenopathy: None. IMPRESSION: No mammographic evidence of malignancy. Annual screening is recommended unless otherwise clinically indicated. ASSESSMENT: BI-RADS Category 1: Negative.
== END 2024-07-11 23:59 | disposition home or self-care (01) ==
LOC: RAD 14:12
PROVIDERS: PCP Family Medicine; Visit Provider Obstetrics & Gynecology
DX: Z12.31 Encounter for screening mammogram for malignant neoplasm of breast (principal)
CPT/HCPCS: 77063; 77067

== ENCOUNTER 2024-07-18 11:00 | Outpatient (RCR) | payer BC, SELFPAY | END 2024-07-18 23:59 | disposition home or self-care (01) | LOC: PT 11:00 | PROVIDERS: PCP Family Medicine; Visit Provider Physician Assistant | DX: M53.3 Sacrococcygeal disorders, not elsewhere classified (principal) | CPT/HCPCS: 97014; 97035; 97110; G0283 ==